=== PATIENT | female | born 1995 | race Caucasian/White ===

== ENCOUNTER → 2022-01-19 | Outpatient (CLI) | payer BC, MEDICAID, SELFPAY ==
--- NOTE | 2022-01-19 | FLU_PTH ---
PATIENT: EDWIN LYONS LOC: [facility] U#:[id number] AGE/SX: 26/F ROOM: RE01/19/[address]: Dr. Héctor Redd MD : 1995 BED: DIS: 01/19/2022 SPEC #: [id number] RECD: 01/19/22 13:42 STATUS: GIOVANNA RASHAAD #: [id number] PRAVEEN: 01/19/22 00:[address]: Héctor Redd DEPT: CYTOLOGY RECD BY: Chase Santos ENTERED: 01/19/22 13:43 SP TYPE: Fluid OTHR DR: Dr. Becca Jones MD Tissues: A - Thyroid gland, NOS B - Thyroid gland, NOS Procedures: Special Stain Group II Surgery Specimen Level IV Cytospin Fluid HEADER OPERATION: Fine needle aspiration left thyroid PRE-OP DIAGNOSIS: Uninodular goiter TISSUE SUBMITTED: A - FNA left thyroid fluid, B ? FNA left thyroid x12 slides DIAGNOSIS CYTOLOGY A. 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 B. Left thyroid nodule, fine needle aspiration (smears): Atypical follicular cells of undetermined significance (Darden category III) Adequate for evaluation. See comment. SJ:katharine 01/20/2022 COMMENT B. 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 Correlation with clinical, radiologic findings and appropriate follow up are necessary. Case has been reviewed in consultation with Dr. Sanderson who concurs with the above diagnosis. IDC:AM CYTOLOGY STUDY Slides are reviewed. CYTOLOGY GROSS A - Received is 30 ml of brown cloudy fluid labeled with the patient's name and and designated per the requisition as left thyroid. Submitted for cytology preparation including cell block. B - Received are 12 smears labeled with the patient's name and designated per the requisition as left thyroid. Submitted for staining. / katharine 01/19/2022 TC:5 CPT: 39519 x2, [id number]
== END | disposition home or self-care (01) ==
LOC: LABSPEC 12:20
PROVIDERS: Referring Provider Surgery; Visit Provider Surgery
DX: E04.9 Nontoxic goiter, unspecified (principal)
CPT/HCPCS: 88108; 88305; 88313